=== PATIENT | female | born 1955 | race Caucasian/White ===

== ENCOUNTER 2016-12-18 21:22 | Emergency (ER) | payer BC ==
[~2016-12-18] VITALS: Ht 177.8 cm; Wt 77.1 kg
[2016-12-18] MEDS ORDERED: MOBIC15 MG PO (21:47)
== END 2016-12-18 22:45 | disposition home or self-care (01) ==
LOC: ED 21:22
DX: S80.02XA Contusion of left knee, initial encounter (principal); F17.200 Nicotine dependence, unspecified, uncomplicated; Z90.710 Acquired absence of both cervix and uterus; Z90.89 Acquired absence of other organs; Z79.899 Other long term (current) drug therapy; W01.0XXA Fall on same level from slipping, tripping and stumbling without subsequent striking against object, initial encounter; Y93.01 Activity, walking, marching and hiking
CPT/HCPCS: 73560; 99283

== ENCOUNTER 2020-05-24 07:00 | Day surgery (SDC) | payer MEDICARE, MEDICAID ==
[~2020-05-24] VITALS: Ht 177.8 cm; Wt 78.2 kg
[~2020-05-24 07:00] MED LIST: MOBIC15 MG PO
[2020-05-24] MEDS ORDERED: ZYLOPRIM100 MG PO (07:25)
[2020-05-24] MEDS ORDERED: TRELEGY ELLIPT1 EACH IH (07:26)
[2020-05-24] MEDS ORDERED: NAPROXEN250 MG PO (07:26)
[2020-05-24] MEDS ORDERED: VENTOLIN HFA18 GM INH (07:26)
--- NOTE | 2020-05-24 08:42 | NUR ---
05/24/20 0842 Lorie Wei 0837 PATIENT ARRIVES TO PACU AWAKE BUT DROWSY. RESP EVEN AND UNLABORED, NC AT 3 LITERS. PATIENT DENIES PAIN OR NAUSEA.
--- NOTE | 2020-05-24 11:20 | OR ---
[facility] [address] [place], [place] [address] Signed DATE OF OPERATION: 05/24/2020 SURGEON: Lashaun Sofia MD PREOPERATIVE DIAGNOSIS: Longstanding gastroesophageal reflux, treatment with PPI medication, clinically doing well. POSTOPERATIVE DIAGNOSES: 1. Mild chronic distal esophagitis without Mcnair's epithelium. 2. Normal-appearing flap valve. PROCEDURE: Esophagogastroduodenoscopy with biopsy. ANESTHESIA: Intravenous sedation with fentanyl 100 mcg, Versed 3 mg. INDICATION: This 65-year-old white woman is a patient of COLEEN Sher and has long-standing gastroesophageal reflux. She is taking Protonix with good clinical result. She does not have dysphagia. She has no nocturnal aspiration type symptoms. She is occasionally awakened at night with reflux and regurgitation otherwise however. She has been recommended to undergo upper endoscopy. Her last upper endoscopy was 5 years ago. She is also smoking though she is endeavoring to discontinue that. She does take Naprosyn. She is admitted to undergo upper endoscopy upon referral from COLEEN Sher. Understanding the risks of bleeding, infection, perforation, and so on. FINDINGS: There is mild chronic distal esophagitis, but no evidence of Mcnair's epithelium or severe stricture or other abnormality otherwise. Her flap valve was surprisingly good. Stomach and duodenum were normal as well. DESCRIPTION OF PROCEDURE: The patient was brought to the endoscopy suite and placed in lateral decubitus position, given intravenous sedation to the point of slurred speech and nystagmus. A bite block was placed. The Olympus video upper endoscope was passed in the hypopharynx and passed into the esophagus without problem. The vocal cords and surrounding soft tissue were normal. Esophagus throughout its length looked good except in the distal portion was mild chronic inflammation. There was a web-like appearance of early Schatzki's ring Electronically Signed By: LASHAUN SOFIA MD 05/24/20 1120 PATIENT NAME: CRISTY POLANCO OPERATIVE REPORT DATE OF : 51 REPORT #: [id number] PHYSICIAN: LASHAUN SOFIA MD PCP: NERY GUILLERMO REPORT IS CONFIDENTIAL AND NOT TO BE RELEASED WITHOUT AUTHORIZATION [facility] [address] [place], [place] [address] Signed also noted. The scope was advanced to the stomach, which was insufflated with air. Rugal folds were normal. Antral motility was normal. Pylorus was normal. Scope was passed through into the duodenum, which was also normal. Biopsies were taken of the duodenum to assess for celiac disease. The scope was withdrawn. A biopsy was then taken of the antrum for both CARLOS and pathologic testing. Retroflexed view was undertaken showing a surprisingly good flap valve. The scope was withdrawn and the distal esophageal biopsies were obtained. Notably, there was no evidence of Mcnair's epithelium, varices, or dense stricture. The scope was withdrawn. A midesophageal biopsy was obtained as well. The scope was removed. There were no other findings of note. The patient was taken to the recovery room in good condition having suffered no complication. CONCLUDING DIAGNOSIS: Mild chronic distal esophagitis, no evidence of Mcnair's epithelium. PLAN: We would recommend continued use of pantoprazole, mindful that there are uncommon risks associated with it. Encouraged to continue with her efforts at smoking cessation. She will continue to follow up with Nery Guillermo, her provider on an ongoing basis. I am happy to see her again should the need arise. MD DAYO Fox/KALEL /[id number] cc: COLEEN Sher Copies: NERY GUILLERMO ~ Electronically Signed By: LASHAUN SOFIA MD 05/24/20 1120 PATIENT NAME: CRISTY POLANCO OPERATIVE REPORT DATE OF : 51 REPORT #: [id number] PHYSICIAN: LASHAUN SOFIA MD PCP: NERY GUILLERMO REPORT IS CONFIDENTIAL AND NOT TO BE RELEASED WITHOUT AUTHORIZATION
--- NOTE | 2020-05-28 14:16 | PATH ---
[facility] [address] [place], [place] [address] Signed SPECIMEN(S): A DUODENAL BIOPSY SPECIMEN(S): B ANTRUM/PYLORUS BIOPSY SPECIMEN(S): C LOWER ESOPHAGEAL BIOPSY SPECIMEN(S): D MIDDLE ESOPHAGEAL BIOPSY SPECIMEN SOURCE: A. DUODENAL BIOPSY B. ANTRUM/PYLORUS BIOPSY C. LOWER ESOPHAGEAL BIOPSY D. MIDDLE ESOPHAGEAL BIOPSY CLINICAL HISTORY: Esophagogastroduodenoscopy with poss biopsies. GERD, post distal esophagitis. MICROSCOPIC DESCRIPTION: Histologic sections of all submitted blocks are examined by light microscopy. These findings, together with the gross examination, support the pathologic diagnosis. FINAL PATHOLOGIC DIAGNOSIS: A. Duodenum, biopsy: - Duodenal mucosa with changes consistent with peptic duodenitis. - Negative for Helicobacter organisms on HE stain. - Negative for dysplasia or malignancy. B. Stomach, antrum/pylorus: - Antral mucosa with mild chronic, inactive gastritis. - Negative for Helicobacter organisms on HE stain. - Negative for dysplasia or malignancy. C. Esophagus, lower, biopsy: - Squamous mucosa with mild chronic inflammation and reactive epithelial changes, consistent with reflux esophagitis. - Negative for intestinal metaplasia, dysplasia, or malignancy. D. Esophagus, middle, biopsy: - Squamous mucosa with mild chronic inflammation and reactive epithelial changes, suggestive of reflux esophagitis. - Negative for increased intraepithelial eosinophils. - Negative for dysplasia or malignancy. COMMENT: As part of [facility]' Quality Improvement Program, part A of this case was reviewed by another member of our pathology staff. NAL:cml:[id number] PATIENT NAME: CRISTY POLANCO PATHOLOGY DATE OF : 51 REPORT #: [id number] PHYSICIAN: MONIQUE DUENAS PCP: VERNON CHANDLER REPORT IS CONFIDENTIAL AND NOT TO BE RELEASED WITHOUT AUTHORIZATION [facility] [address] [place], [place] [address] Signed GROSS DESCRIPTION: Four specimens are received in four containers, labeled "VH." A. The specimen, labeled "VH, duodenal biopsy," is received in formalin and consists of two dumas soft tissue fragments that measure 0.2 cm in greatest dimension. The specimen is entirely submitted in cassette (A1). B. The specimen, labeled "VH, antrum biopsy," is received in formalin and consists of two dumas soft tissue fragments that measure 0.1-0.2 cm in greatest dimension. The specimen is entirely submitted in cassette (B1). C. The specimen, labeled "VH, lower esophagus biopsy," is received in formalin and consists of five dumas soft tissue fragments that measure 0.1-0.3 cm in greatest dimension. The specimen is entirely submitted in cassette (C1). D. The specimen, labeled "VH, middle esophagus biopsy," is received in formalin and consists of one dumas soft tissue fragment that measures 0.4 cm in greatest dimension. The specimen is entirely submitted in cassette (D1). JS (under the direct supervision of a pathologist) The Gross Description was prepared using a voice recognition system. The report was reviewed for accuracy; however, sound-alike word errors, addition and/or deletions may occur. If there is any question about this report, please contact Client Services. PERFORMING LABORATORY: The technical component was performed by [facility], [address] [place] [id number] (Assistant Department Manager: Deborah Jimenez MD; CLIA# [id number]). Professional interpretation was performed by [facility], [facility], [address] [address] (CLIA# [id number]). Diagnostician: Georgina Mabry MD Pathologist Electronically Signed 05/28/2020 Copies: ~ PATIENT NAME: CRISTY POLANCO PATHOLOGY DATE OF : 51 REPORT #: [id number] PHYSICIAN: MONIQUE DUENAS PCP: VERNON CHANDLER REPORT IS CONFIDENTIAL AND NOT TO BE RELEASED WITHOUT AUTHORIZATION
== END 2020-05-24 09:00 | disposition home or self-care (01) ==
LOC: OPS 07:00 → DS 07:00 → OPS 08:00 → DS 09:30
PROVIDERS: ATTEND Surgery
PROC: 0DB98ZZ Excision of Duodenum, Via Natural or Artificial Opening Endoscopic (ICD-10-PCS; principal; 2020-05-24 08:00)
DX: K21.00 Gastro-esophageal reflux disease with esophagitis, without bleeding (principal); K29.50 Unspecified chronic gastritis without bleeding; K22.2 Esophageal obstruction; K44.9 Diaphragmatic hernia without obstruction or gangrene; E11.9 Type 2 diabetes mellitus without complications; F17.210 Nicotine dependence, cigarettes, uncomplicated; M10.9 Gout, unspecified; J44.9 Chronic obstructive pulmonary disease, unspecified
CPT/HCPCS: 99153; G0500; J2250; J3010; J7121